=== PATIENT | female | born 1950 | race Caucasian/White ===

== ENCOUNTER 2018-10-15 11:30 | Emergency (ER) | payer OTHER, MEDICARE ==
[~2018-10-15] VITALS: Ht 167.6 cm; Wt 48.5 kg
[2018-10-15 12:34] LABS: ABSOLUTE NEUTROPHILS 4.6 thou/uL (1.4-8.2); BASOPHILS 0.7 % (0.0-2.0); EOSINOPHILS 0.8 % (0.0-3.0); HEMATOCRIT 26.9 % (37.0-47.0); HEMOGLOBIN 9.6 gm/dL (12.0-15.0); LYMPHOCYTES 8.8 % (24.0-44.0); MCH 36.5 pg (26.0-34.0); MCHC 35.7 g/dL (28.0-37.0); MCV 102.3 fL (80.0-100.0); MONOCYTES 11.9 % (1.0-8.0); PLATELET COUNT 324 thou/uL (150-400); POLYS 77.8 % (36.0-66.0); RBC 2.63 mil/uL (4.20-5.00); RDW 14.8 % (10.5-14.5); WBC 5.9 thou/uL (4.0-11.0)
[2018-10-15 12:44] LABS: CALCIUM 9.1 mg/dL (8.5-10.1); CREATININE 0.6 mg/dL (0.6-1.0); POTASSIUM 3.5 mmol/L (3.5-5.1)
[2018-10-15 12:48] LABS: APTT 27.6 Seconds (24.5-32.8); PROTIME 10.7 Seconds (9.3-11.4)
[2018-10-15 12:49] LABS: ALBUMIN 3.2 g/dL (3.4-5.0); TOTAL BILIRUBIN 0.4 mg/dL (<0.1-1.0)
[2018-10-15 15:37] VITALS: BP 116/71
== END 2018-10-15 15:37 | disposition home or self-care (01) ==
LOC: ER 11:30
PROVIDERS: Emergency Medicine
DX: N99.820 Postprocedural hemorrhage of a genitourinary system organ or structure following a genitourinary system procedure (principal); R33.9 Retention of urine, unspecified

== ENCOUNTER 2018-11-25 13:42 | Inpatient (IN) | payer OTHER, MEDICARE ==
[~2018-11-25] VITALS: Ht 167.6 cm; Wt 46.3 kg
[2018-11-25 13:43] VITALS: BP 118/69
[2018-11-25 14:34] LABS: ABSOLUTE NEUTROPHILS 5.7 thou/uL (1.4-8.2); BASOPHILS 0.6 % (0.0-2.0); EOSINOPHILS 0.2 % (0.0-3.0); HEMATOCRIT 38.4 % (37.0-47.0); HEMOGLOBIN 12.9 gm/dL (12.0-15.0); LYMPHOCYTES 10.1 % (24.0-44.0); MCH 34.2 pg (26.0-34.0); MCHC 33.7 g/dL (28.0-37.0); MCV 101.8 fL (80.0-100.0); MONOCYTES 8.1 % (1.0-8.0); PLATELET COUNT 199 thou/uL (150-400); RBC 3.77 mil/uL (4.20-5.00); RDW 13.3 % (10.5-14.5)
[2018-11-25 14:42] LABS: ANION GAP 8 mmol/L (7-16); BUN 17 mg/dL (7-18); CALCIUM 9.7 mg/dL (8.5-10.1); CHLORIDE 91 mmol/L (98-107); CO2 26 mmol/L (21-32); CREATININE 0.6 mg/dL (0.6-1.0); GLUCOSE 103 mg/dL (74-106); POTASSIUM 4.4 mmol/L (3.5-5.1); SODIUM 125 mmol/L (136-145)
[2018-11-25 14:52] LABS: TROPONIN-I <0.06 ng/mL (<0.06)
[2018-11-25 15:48] LABS: URINE BILIRUBIN NEGATIVE (Negative); URINE BLOOD NEGATIVE (Negative); URINE CLARITY CLEAR; URINE COLOR YELLOW; URINE GLUCOSE-RANDOM* NEGATIVE (Negative); URINE KETONES NEGATIVE (Negative); URINE LEUKOCYTES-REFLEX NEGATIVE (Negative); URINE NITRITE-REFLEX NEGATIVE (Negative); URINE PROTEIN (DIPSTICK) NEGATIVE (Negative); URINE SPECIFIC GRAVITY <= 1.005 (1.005-1.035); URINE UROBILINOGEN 0.2 E.U./dl (0.2-1.0)
[2018-11-25 15:49] LABS: URINE CREATININE-RANDOM* <13 mg/dL; URINE SODIUM-RANDOM* 24 mmol/L
[2018-11-25 16:32] VITALS: BP 105/72
[2018-11-25] MEDS ORDERED: VERAPAMIL E.R240 M1 PO (16:46)
[2018-11-25 17:17] VITALS: BP 157/74
--- NOTE | 2018-11-25 17:17 | EKG ---
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1950 Requested By: Lew Regan Order Number: [id number] MD: Atul Arzola Measurements Intervals [place] Rate: 54 P: 43 TX: 229 QRS: 23 QRSD: 107 T: 49 QT: 462 QTc: 438 Interpretive Statements Sinus rhythm Atrial premature complex Prolonged TX interval RSR' in V1 or V2, right VCD or RVH No previous ECG available for comparison Electronically Signed On 11-25-2018 17:17:38 CDT by Atul Arzola [email or web address] ��������������������������������������������� <ELECTRONICALLY SIGNED> ���������������������������������������� By: Atul Arzola MD ��������������������������������������������� 11/25/18 1717 1349 48 Atul Arzola MD /ANGELIQUE
[2018-11-25] MEDS ORDERED: LASIX 40 MG TAB40 M2 PO (17:39)
[2018-11-25] MEDS ORDERED: PENTOXIFYLLINE400 MG PO (17:41)
[2018-11-25] MEDS ORDERED: DOXYCYCLINE 10100 MG PO (17:41)
[2018-11-25] MEDS ORDERED: XANAX1 MG PO ×2 (17:43)
[2018-11-25] MEDS ORDERED: TYLENOL EXTRA500 MG PO (17:43)
[2018-11-25] MEDS ORDERED: ESTRODIAL TRANSDERM (17:45)
--- NOTE | 2018-11-25 17:55 | NUR ---
ADMISSION COMPLETED AND PATIENTS PHARMACY CALLED TO VERIFY MEDICATIONS AND DOSAGES. PHARMACY CONFIRMED THAT PATIENT HAS NO MEDICATION ALLERGIES LISTED WITH THEM. PATIENT VERBALIZED UNDERSTANDING TO ALL ADMISSION INFORMATION PROVIDED.
[2018-11-25 20:33] VITALS: BP 150/72
[2018-11-25] MEDS ORDERED: CALAN120 MG PO ×2 (22:55→22:57)
--- NOTE | 2018-11-26 02:54 | NUR ---
ASSUMED CARE AROUND 1900. ADMITTED WITH SYNCOPE. AXOX4 WITH FORGETFULNESS. WHEN ENTERED SHIFT. PT HAD WRITTEN EXACT HOME MED REGIMEN ON A NOTEPAD. CALLED TICKET PULLER FOR AND OBTAINED AN ORDER TO RESUME ANY HOME MEDS THAT PT IS REQUESTING INCLUDING XANAX,TYLENOL,MELATONIN AND SIMETHICONE. CARRIED OUT. VSS. NO SYNCOPAL EPISODE NOTED AT THIS TIME. NO S/S ACUTE DISTRESS NOTED OR REPORTED AT THIS TIME. WILL CONT TO MONITOR FOR ANY CHANGES IN CONDITION.
[2018-11-26] MEDS ORDERED: TYLENOL EXTRA500 MG PO ×2 (03:52→03:54)
[2018-11-26] MEDS ORDERED: MELATONIN3 MG PO (03:52)
[2018-11-26] MEDS ORDERED: SIMETHICON CHEW80 M1 PO (03:53)
[2018-11-26 04:03] VITALS: BP 126/63
[2018-11-26 08:16] VITALS: BP 123/62
[2018-11-26 12:21] LABS: CALCIUM 9.7 mg/dL (8.5-10.1); CREATININE 0.7 mg/dL (0.6-1.0)
[2018-11-26 14:34] VITALS: BP 123/60
--- NOTE | 2018-11-26 16:07 | NUR ---
PT ADMITTED RELATED TO SYNCOPE. CM REVIEWED CHART AND SPOKE WITH CARE TEAM. CM MET WITH PT AND SPOUSE AT BEDSIDE THIS DAY. PT IS A&O X4. CM ROLE INTRODUCED. PT INDICATED SHE AND SPOUSE RESIDE IN AN APARTMENT WITH NO STEPS TO ENTER AND NO STEPS INSIDE. 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 SHE INDICATED THAT HER SPOUSE HELPS HER WHEN HE'S AROUND. PT INDICATED SHE HAD GONE TO OP THERAPY IN THE PAST. SHE INDICATED SHE WOULD BE RECEPTIVE TO HOME HEALTH SERVICES IF RECOMMENDED UPON DC. THEY INDICATED NO PREFERENCE AND STATED THAT [facility] WOULD BE FINE IF SERVICES WERE ORDERED UPON DC. PT PLANS TO DC HOME THIS WEEKEND. CM TO FOLLOW INDICATED WITH DC PLANNING.
[2018-11-26 16:44] VITALS: BP 145/71
[2018-11-26 16:45] VITALS: BP 116/88; BP 140/76
[2018-11-26 19:36] VITALS: BP 123/71
[2018-11-27 03:03] VITALS: BP 141/70
--- NOTE | 2018-11-27 03:23 | NUR ---
PATIENT AOX4 MAKES NEEDS KNOWN. PATIENT AMBULATES WITH UNSTEADY GAITS. PATIENT AMBULATES IN THE ROOM AND HALLWAY. INCREASED HEART RATE NOTED WITH ACTIVITIES. PAIN CONTROLLED THIS SHIFT. PATIENT DENIED SYNOPE OR DISCOMFORT THIS SHIFT. PATIENT IN BED ASLEEP AT THIS TIME BREATHING REGULAR AND UNLABOURED
[2018-11-27 03:49] VITALS: BP 144/64
[2018-11-27 04:48] LABS: CALCIUM 9.2 mg/dL (8.5-10.1); CREATININE 0.7 mg/dL (0.6-1.0); POTASSIUM 4.2 mmol/L (3.5-5.1)
[2018-11-27 07:41] VITALS: BP 125/71
[2018-11-27 10:36] VITALS: BP 125/71
--- NOTE | 2018-11-27 15:06 | NUR ---
PT ALERT AND ORIENTED TIMES FOUR. VSS, 99%RA, SR ON TELE. PT DENIES PAIN/SOA. PT TOLERATES MEDS AND MEALS. PT UP TO RESTROOM WITH STANDBY ASSIST. PT PROGRESSSING [facility] POC GOALS.
--- NOTE | 2018-11-30 09:44 | H ---
[facility] [place] [address] HISTORY AND PHYSICAL Name: DB DANIELLE Room #: 464-P [facility] IN .R.#: [id number] Admission: 11/25/18 ������������������ Attend Phys: Mason Mishra MD Discharge: 11/27/18 ������������������ Date of : 48 Report #: [id number] THIS REPORT FOR: //name// CC: Madi Mishra DATE OF SERVICE: 11/25/2018 CHIEF COMPLAINT: Syncope. HISTORY OF PRESENT ILLNESS: The patient is a 68-year-old female who was admitted through the Emergency Room with a syncopal episode. She apparently passed out while standing in her kitchen. Her said she did not hit her head and seemed to regain consciousness after just a few seconds. There were no preceding symptoms of chest pain, lightheadedness or shortness of breath. However, the patient told me that a few times over the last several weeks, she has felt "woozy" in her head at times and has had to sit down or lie down for the symptoms to pass. She denied any previous syncopal episodes. PAST MEDICAL HISTORY: Anxiety. She has a chronic eye condition. She recently underwent a corrective repair of a rectovagicele at [facility]. She had some minor bleeding postoperatively, varicose veins with edema. PAST SURGICAL HISTORY: As above. FAMILY HISTORY: Noncontributory. SOCIAL HISTORY: She lives at home. No chronic alcohol or tobacco use. ALLERGIES: She has multiple. MEDICATIONS: Several eyedrops, Xanax multiple times a day, verapamil twice a day. REVIEW OF SYSTEMS: She complains of dry eyes and trouble sleeping. Otherwise, no headache, chest pain, shortness of breath, abdominal pain, nausea, vomiting, diarrhea, constipation, dysuria, myalgias, arthralgias. She does report some ankle edema. OBJECTIVE: VITAL SIGNS: Temperature 36.6, pulse 57, respirations 18, blood pressure 123/62, O2 sat 100% on room air. GENERAL: She is awake and alert, in no distress. HEAD AND NECK: Unremarkable. LUNGS: Clear. CARDIOVASCULAR: Heart is regular. [facility] [address] [place] [address] HISTORY AND PHYSICAL Name: DB DANIELLE Room #: 464-P [facility] IN M.R.#: [id number] Admission: 11/25/18 ������������������ Attend Phys: Mason Mishra MD Discharge: 11/27/18 ������������������ Date of : 48 Report #: [id number] ABDOMEN: Soft, normoactive bowel sounds. EXTREMITIES: There is trace ankle edema. NEUROLOGIC: Cranial nerves intact. Speech is fluent. Motor strength 5/5 throughout. She is oriented to place and situation. LABORATORY REVIEW: Pertinent findings include sodium of 125. ASSESSMENT: 1. Syncopal episode. 2. Hyponatremia. 3. Chronic anxiety. PLAN: We will hold her Lasix for now as her edema has resolved. I wonder if she could have had a vasovagal or orthostatic event at home. She said her neurologist has recently increased her verapamil to 180 mg at bedtime. In reviewing lab data from the office, most recently her sodium was 130 and in August of this year was 129, so this seems to be a mildly chronic issue. She is asymptomatic from that regard at this point. She reports cardiac evaluation prior to her surgery, so I do not feel we need to repeat an echocardiogram at this time, but we will order carotid Dopplers, but suspicion is low there. ��������������������������������������������� <ELECTRONICALLY SIGNED> ���������������������������������������� By: Mason Mishra MD ��������������������������������������������� 11/30/18 0944 1153 1242 Mason Mishra MD /nt
== END 2018-11-27 13:40 | disposition home or self-care (01) | DRG 640 ==
LOC: ER 13:42 → 4W 15:10 → EROBS 15:10 → 4W 16:17
PROVIDERS: Emergency Medicine; ADMIT Internal Medicine Geriatric Medicine
DX: E87.1 Hypo-osmolality and hyponatremia (principal); E43 Unspecified severe protein-calorie malnutrition; Z68.1 Body mass index [BMI] 19.9 or less, adult; F41.9 Anxiety disorder, unspecified; Z79.899 Other long term (current) drug therapy
CPT/HCPCS: 10045

== ENCOUNTER → 2018-12-29 | Outpatient (CLI) | payer OTHER, MEDICARE ==
[~2018-12-29] VITALS: Ht 167.6 cm; Wt 49.4 kg
[~2018-12-29] MED LIST: CALAN120 MG PO; DIFLUCAN200 MG PO; DOXYCYCLINE 10100 MG PO; ESTRODIAL TRANSDERM; LASIX 40 MG TAB40 M2 PO; MELATONIN3 MG PO; PENTOXIFYLLINE400 MG PO; SIMETHICON CHEW80 M1 PO; TYLENOL EXTRA500 MG PO; VERAPAMIL E.R240 M1 PO; VERAPAMIL PO; XANAX1 MG PO
--- NOTE | 2018-12-30 15:29 | P ---
[facility] [place] [address] PROCEDURE REPORT Name: DB DAINELLE Room #: REG Briseida Baker.#: [id number] Admission: 12/29/18 ������������������ Attend Phys: Johnny Morley Discharge: ������������������ Date of : 48 Report #: [id number] THIS REPORT FOR: //name// CC: Aime Conway DATE OF SERVICE: 12/29/2018 PROCEDURE PERFORMED: Flexible sigmoidoscopy with biopsies. HISTORY OF PRESENT ILLNESS: The patient is a 68-year-old female with a history of intermittent diarrhea and constipation. She underwent a colonoscopy by my partner in 2010. At that time, biopsies were consistent with collagenous colitis. Per the office chart note at that time, she was having chronic diarrhea as well as weight loss. She does not recall being treated in the past. She has had a long history of constipation and she has frequent bowel movements. She averages 8 to 15 per day she states, which is becoming worse after a recent prolapse surgery of the pelvic floor this apparently for vaginal and bladder prolapse. She does not have a history of rectal prolapse apparently. She denies any obvious blood in her stools. She has tried MiraLax. She states on a typical day, she will pass multiple small hard stools and then later followed by loose stools and diarrhea. Plan is for flexible sigmoidoscopy. DESCRIPTION OF PROCEDURE: The risks and benefits of the procedure were explained to the patient those risks including, but not limited to bleeding, perforation and the risk of sedation. She understood these risks and gave informed consent. Sedation was given using propofol per anesthesia. Next on a digital rectal exam, there was noted to be several balls of formed stool in the rectum. I removed these digitally removing approximately 6 to 8 fecal balls. At this point, a standard Olympus colonoscope was placed in the patient's anus and advanced under direct vision into the sigmoid colon at which point there was a combination of liquid as well as solid stool. Multiple washings and aspirations were performed. All areas that were visualized were normal in the sigmoid colon as well as the rectum. There was no evidence of colitis. There were no polyps or other abnormalities noted. I did obtain random biopsies to rule out microscopic colitis. I was unable to advance the scope much further than the sigmoid colon again due to large amount of stool in this area. On retroflexion, small internal hemorrhoid was noted. Close examination of the anal canal showed no evidence of anal fissure. No bleeding was noted. The scope was then withdrawn and the procedure terminated. The patient tolerated the procedure well. IMPRESSION: Solid stool throughout the rectum digitally removed, prep was poor in many areas, but areas of the sigmoid colon and rectum that were visualized [address] [address] PROCEDURE REPORT Name: DB DANIELLE Room #: REG PIPPA Chavez#: [id number] Admission: 12/29/18 ������������������ Attend Phys: Johnny Morley Discharge: ������������������ Date of : 48 Report #: [id number] were normal. No evidence of colitis or abnormality. Biopsies were obtained. RECOMMENDATIONS: 1. Await biopsy results. 2. It appears constipation tends to be more of an issue with the patient and diarrhea, although she does report loose stools and diarrhea after passing multiple hard stools. We will discuss further options, MiraLax, maybe even consider Linzess with the patient in the near future. Thank you for allowing me to participate in her care. ��������������������������������������������� <ELECTRONICALLY SIGNED> ���������������������������������������� By: Johnny Mccoy MD ��������������������������������������������� 12/30/18 1529 1159 0414 Johnny Mccoy MD /nt
--- NOTE | 2018-12-30 17:06 | PATH ---
[facility] [place] [address] PATHOLOGY RPT PROCEDURE Name: DB RIVERA Room #: REG PIPPA Baker.#: [id number] ������������������ Admission: 12/29/18 ������������������ Date of : 48 Discharge: Report #: [id number] Path Case #: [id number] [facility] Accession Number: [id number] . 01 Material submitted: . colon - BX OF RANDOM COLON . 01 Clinical history: . Pre-OP DX: Hx of microscopic colitis, intermittent diarrhea, please refer to requisition for additional information Post-OP DX: None provided . 02 Diagnosis: Large intestinal mucosa, random colon, endoscopic biopsy: - Thickened subepithelial collagen, favor collagenous colitis (please see comment). . (IUV:mml; 12/30/2018) QLM/12/30/2018 . 02 Comment: Examination shows thickened subepithelial collagen layer in numerous foci. The crypts appear atrophic within these areas. Focal denuded epithelium is identified as well. Active cryptitis, ulceration, fibrinopurulent material, fibrin-filled vessels, crypt abscess, architectural abnormalities, as well as viral inclusions are not identified. The findings are suggestive of collagenous colitis. The differential diagnosis includes a partially-sampled ischemic colitis, (without active ulceration). There is no dysplasia or malignancy present. Clinical correlation is suggested. . (IUV:mml; 12/30/2018) . 02 Electronically signed: . Susan Razo MD, Pathologist NPI- [id number] . 01 Gross description: . Received in formalin labeled "Db Rivera, BX of random colon," are 3 segments of nguyen soft tissue measuring 1.0 x 0.8 x 0.3 cm in aggregate dimensions and ranging from 0.3 to 0.4 cm in maximum dimension. The specimen is submitted entirely in cassette A1. (TSD; 12/29/2018) TOB/TOB . 02 Pathologist provided ICD-10: K52.[address] [place] [address] PATHOLOGY RPT PROCEDURE Name: DB RIVERA Room #: REG [facility] [id number] ������������������ Admission: 12/29/18 ������������������ Date of : 48 Discharge: Report #: [id number] Path Case #: [id number] . 02 [facility] . [id number] Specimen Comment: A courtesy copy of this report has been sent to Specimen Comment: [phone], . Specimen Comment: Report sent to / DR HORNER Performed at: [address] [facility], [place], [place] [id number] MD Gregorio Aguila MD Phone: [phone] Performed at: [address] [facility] [id number] MD Susan Razo MD Phone: [phone]
== END | disposition home or self-care (01) ==
LOC: GI 08:46
DX: K52.831 Collagenous colitis (principal); K64.8 Other hemorrhoids; I10 Essential (primary) hypertension; E78.5 Hyperlipidemia, unspecified; M19.90 Unspecified osteoarthritis, unspecified site; F32.9 Major depressive disorder, single episode, unspecified; F41.9 Anxiety disorder, unspecified; Z85.828 Personal history of other malignant neoplasm of skin; Z90.710 Acquired absence of both cervix and uterus; Z98.890 Other specified postprocedural states; Z98.41 Cataract extraction status, right eye; Z98.42 Cataract extraction status, left eye; Z87.19 Personal history of other diseases of the digestive system; Z88.6 Allergy status to analgesic agent; Z88.8 Allergy status to other drugs, medicaments and biological substances; Z79.899 Other long term (current) drug therapy
CPT/HCPCS: 62110; 62900

== ENCOUNTER → 2019-03-07 | Outpatient (CLI) | payer OTHER, MEDICARE | LOC: RAD 11:59 | DX: K59.00 Constipation, unspecified (principal) ==

== ENCOUNTER 2019-10-06 21:21 | Inpatient (IN) | payer OTHER, MEDICARE ==
[~2019-10-06] VITALS: Ht 167.6 cm; Wt 48.1 kg
--- NOTE | ~2019-10-06 | H ---
[facility] [place] [address] HISTORY AND PHYSICAL Name: DB DANIELLE Room #: 464-P ADM IN M.R.#: [id number] Admission: 10/07/19 Attend Phys: Noah Michele Discharge: Date of : 48 Report #: [id number] THIS REPORT FOR: cc: Madi Conway MD,Lauren Arriaga MD ~ CC: Madi Conway DATE OF SERVICE: 10/07/2019 CHIEF COMPLAINT: Weakness and confusion. HISTORY OF PRESENT ILLNESS: The patient is a 68-year-old female who was admitted to the Emergency Room with confusion. She said for the last several months she has not been feeling well and she is kind of "sick all over." She says she has had a hard time concentrating and remembering things. She has reported a hard time managing her ADL function at home. There has really been no specific complaint of fever, chills, productive cough, nausea or vomiting. She has complaints of some urinary and fecal incontinence for the last 4 months that interrupts her sleep apparently. She has already been seen by colorectal surgery in Urology as an outpatient, but they are seeking second opinions. Apparently yesterday, she was completely incoherent, was directed to the Emergency Room. This morning, she is awake and alert and is giving appropriate history. There have been no major issues or changes overnight, so further workup has been unremarkable. PAST MEDICAL HISTORY: Bladder sling, rectal surgery, hysterectomy, osteoarthritis, depression, anxiety. She has a history of OCD, aundrea and anxiety and was admitted to [facility] some time ago and history of skin cancer. FAMILY HISTORY: Unknown. SOCIAL HISTORY: Unknown other than a chronic alcohol or tobacco use. ALLERGIES: There approximately 20 medications on her allergy list. See the computer list. MEDICATIONS: Xanax, pentoxifylline, estradiol patch, Tylenol, melatonin and Verapamil. REVIEW OF SYSTEMS: She just complains of feeling sick. She really cannot specify any specific symptoms. Denies headache, chest pain, abdominal pain, dysuria or syncope. PHYSICAL EXAMINATION: [facility] [address] [place] [address] HISTORY AND PHYSICAL Name: DB DANIELLE Room #: 464-P [facility] IN .R.#: [id number] Admission: 10/07/19 Attend Phys: Noah Michele Discharge: Date of : 48 Report #: [id number] VITAL SIGNS: Temperature 36.3, pulse 106, respirations 18, blood pressure 184/51, O2 sat 97% on room air. GENERAL: She is awake and alert, eating breakfast, in no distress. HEAD AND NECK: Unremarkable. LUNGS: Clear. HEART: Regular. ABDOMEN: Soft. Normoactive bowel sounds, soft, nontender, no rebound or guarding. EXTREMITIES: No cyanosis, clubbing or edema. LABORATORY DATA: Reviewed. Pertinent findings are sodium 125. ASSESSMENT: 1. Hyponatremia. 2. Hypertension. 3. Chronic anxiety, depression. PLAN: She received a little bit of IV fluids overnight and I will repeat her lab work. No sign of infectious process or acute neurovascular event at this point. I will ask the psychiatry service to see her as well. By: 0950 1015 Lauren Flores, FLOWER /nt
--- NOTE | ~2019-10-06 | EMS ---
[facility] [address] [place] [address] EMS Patient Care Report Name: DB DANIELLE Room #: 462-P ADM IN M.R.#: [id number] Admission: 10/07/19 Attend Phys: Noah Michele Discharge: Date of : 48 Report #: [id number] THIS REPORT FOR: //name// Report Transmitted: 10/10/2019 09:25 EMS Care Summary [facility] MED-ACT Incident [id number] @ 10/06/2019 20:40 Incident Location [id number] [place] [address] Patient DB DANIELLE Female, 68 Years 1950 Patient Address [address] [place] [address] Patient History Other,Gastro-Esophageal Reflux Disease (GERD),Anxiety,Urinary Incontinence,Insomnia, Patient Medications Pantoprazole, Metronidazole, Mylanta, Calcium Citrate, Miralax, Melatonin, Fluconazole, Doxycycline, Estradiol, Famotidine, Dyazide, Verapamil, Cymbalta, Aciphex, Alprazolam, Effexor, Tylenol, Klonopin, Trazodone, Chief Complaint confusion Disposition Transported No Lights/[place] Dispatch Reason Unconscious/Fainting Transported To [facility] Narrative Pt stated she has not been taking her medication as prescribed and is now [facility] [address] [place] [address] EMS Patient Care Report Name: DB DANIELLE Room #: 462-P ADM IN ..#: [id number] Admission: 10/07/19 Attend Phys: Noah Michele Discharge: Date of : 48 Report #: [id number] hurting all over and can't sleep, hx of insomnia. Pt said she does not have any help with organizing medication from her spouse. Spouse said he was unaware pt stopped taking her medication but also stated she is refusing to take her sleep and pain medication due to a hx of addiction. Spouse said pt is not sleeping and has a hx of anxiety. Pt denied any self harm and stated she is aware she is confused. Pt also complained of her chronic eye pain. Spouse said pt was recently in [facility] for psych and the doctor changed all her medication. EMS arrived to pt and spouse sitting at their kitchen table. Spouse was attempting to explain the pt's medical hx and saying she is non compliant with doctor orders. Pt kept repeating herself, "There's something I need to take tonight". Pt also was repeatedly talking about her living will and DNR. Pt stood and sat on cot, secured. Pt to MICU. En route pt repeated the same phrase as above and said she was hurting all over. EMS asked the pt if she was aware of the current event and understood what was happening. Pt was able to state she was confused and going to [place]. Biocom- no orders req/rec Pt to bed, verbal report to RN Initial Vitals @21:09BP: 199/102,SpO2: 100, @21:02P: 92,BP: 180/91,Glucose: 107,SpO2: 100, @20:53P: 85,R: 20,BP: 185/100,Pain: 6/10,GCS: 15,SpO2: 100,Revised Trauma: 12, Assessments @20:48MENTAL:Confused,Person Oriented,Place Oriented,Time Oriented,Event Oriented,SKIN:HEENT:Head/Face: Other,Eyes: Right Pupil: 3-mm,Eyes: Left Pupil: 3-mm,Neck/Airway: No Abnormalities,LUNG SOUNDS:General: No Abnormalities,ABDOMEN:General: No Abnormalities,PELVIS//GI:No Abnormalities,EXTREMITIES:Left Arm: No Abnormalities,Right Arm: No Abnormalities,Left Leg: No Abnormalities,Right Leg: No Abnormalities,PULSE:NEURO:No Abnormalities, Impression Malaise Timeline 20:40,Call Received 20:40,Psap Call 20:40,Dispatched 20:41,En Route 20:46,On Scene 20:47,At Patient [address] [place] [address] EMS Patient Care Report Name: DB DANIELLE Room #: 462-P ADM IN M.R.#: [id number] Admission: 10/07/19 Attend Phys: Noah Michele Discharge: Date of : 48 Report #: [id number] 20:53,BP: 185/100 M,PULSE: 85,RR: 20 R,SPO2: 100 Ox,ETCO2: ,BG: ,PAIN: 6,GCS: 15, 21:02,Depart Scene 21:02,BP: 180/91 M,PULSE: 92,RR: R,SPO2: 100 Ox,ETCO2: ,B,PAIN: ,GCS: , 21:09,BP: 199/102 M,PULSE: ,RR: R,SPO2: 100 Ox,ETCO2: ,BG: ,PAIN: ,GCS: , 21:16,At Destination 21:28,Call Closed Disclaimer v1.1 Copyright 2020 [employer] This EMS Care Summary contains data elements from the applicable legal record (which may be displayed differently). It is designed to provide pertinent information for the following purposes: continuity of care, clinical quality, and state data reporting. The complete legal record is available to ED staff and administrators of the receiving hospital in [employer]'s Patient Tracker. All data is provided "as is."
--- NOTE | ~2019-10-06 | EMS ---
[facility] [address] [place] [address] EMS Patient Care Report Name: DB DANIELLE Room #: REG YASH Chavez#: [id number] Admission: 10/06/19 Attend Phys: Discharge: Date of : 48 Report #: [id number] THIS REPORT FOR: //name// Report Transmitted: 10/06/2019 22:10 EMS Care Summary [facility] MED-ACT Incident [id number] @ 10/06/2019 20:40 Incident Location [address] [place] [address] Patient DB DANIELLE Female, 68 Years 1950 Patient Address [id number] [place] [address] Patient History Other,Gastro-Esophageal Reflux Disease (GERD),Anxiety,Urinary Incontinence,Insomnia, Patient Medications Pantoprazole, Metronidazole, Mylanta, Calcium Citrate, Miralax, Melatonin, Fluconazole, Doxycycline, Estradiol, Famotidine, Dyazide, Verapamil, Cymbalta, Aciphex, Alprazolam, Effexor, Tylenol, Klonopin, Trazodone, Chief Complaint confusion Disposition Transported No Lights/[place] Reason Unconscious/Fainting Transported To [facility] Narrative Pt stated she has not been taking her medication as prescribed and is now [facility] [address] [place] [address] EMS Patient Care Report Name: DB DANIELLE Room #: REG YASH Chavez#: [id number] Admission: 10/06/19 Attend Phys: Discharge: Date of : 48 Report #: [id number] hurting all over and can't sleep, hx of insomnia. Pt said she does not have any help with organizing medication from her spouse. Spouse said he was unaware pt stopped taking her medication but also stated she is refusing to take her sleep and pain medication due to a hx of addiction. Spouse said pt is not sleeping and has a hx of anxiety. Pt denied any self harm and stated she is aware she is confused. Pt also complained of her chronic eye pain. Spouse said pt was recently in [facility] for psych and the doctor changed all her medication. EMS arrived to pt and spouse sitting at their kitchen table. Spouse was attempting to explain the pt's medical hx and saying she is non compliant with doctor orders. Pt kept repeating herself, "There's something I need to take tonight". Pt also was repeatedly talking about her living will and DNR. Pt stood and sat on cot, secured. Pt to MICU. En route pt repeated the same phrase as above and said she was hurting all over. EMS asked the pt if she was aware of the current event and understood what was happening. Pt was able to state she was confused and going to [place]. Biocom- no orders req/rec Pt to bed, verbal report to RN Initial Vitals @21:09BP: 199/102,SpO2: 100, @21:02P: 92,BP: 180/91,Glucose: 107,SpO2: 100, @20:53P: 85,R: 20,BP: 185/100,Pain: 6/10,GCS: 15,SpO2: 100,Revised Trauma: 12, Assessments @20:48MENTAL:Confused,Person Oriented,Place Oriented,Time Oriented,Event Oriented,SKIN:HEENT:Head/Face: Other,Eyes: Right Pupil: 3-mm,Eyes: Left Pupil: 3-mm,Neck/Airway: No Abnormalities,LUNG SOUNDS:General: No Abnormalities,ABDOMEN:General: No Abnormalities,PELVIS//GI:No Abnormalities,EXTREMITIES:Left Arm: No Abnormalities,Right Arm: No Abnormalities,Left Leg: No Abnormalities,Right Leg: No Abnormalities,PULSE:NEURO:No Abnormalities, Impression Malaise Timeline 20:40,Call Received 20:40,Psap Call 20:40,Dispatched 20:41,En Route 20:46,On Scene 20:47,At Patient [facility] [address] [place] [address] EMS Patient Care Report Name: DB DANIELLE Room #: REG ER [facility].#: [id number] Admission: 10/06/19 Attend Phys: Discharge: Date of : 48 Report #: [id number] 20:53,BP: 185/100 M,PULSE: 85,RR: 20 R,SPO2: 100 Ox,ETCO2: ,BG: ,PAIN: 6,GCS: 15, 21:02,Depart Scene 21:02,BP: 180/91 M,PULSE: 92,RR: R,SPO2: 100 Ox,ETCO2: ,B,PAIN: ,GCS: , 21:09,BP: 199/102 M,PULSE: ,RR: R,SPO2: 100 Ox,ETCO2: ,BG: ,PAIN: ,GCS: , 21:16,At Destination 21:28,Call Closed Disclaimer v1.1 Copyright 2020 [employer] This EMS Care Summary contains data elements from the applicable legal record (which may be displayed differently). It is designed to provide pertinent information for the following purposes: continuity of care, clinical quality, and state data reporting. The complete legal record is available to ED staff and administrators of the receiving hospital in [employer]'s Patient Tracker. All data is provided "as is."
[2019-10-06 21:32] VITALS: BP 182/102
[2019-10-06 22:00] LABS: ABSOLUTE NEUTROPHILS 3.4 thou/uL (1.4-8.2); BASOPHILS 0.7 % (0.0-2.0); EOSINOPHILS 0.4 % (0.0-3.0); HEMATOCRIT 41.6 % (37.0-47.0); LYMPHOCYTES 23.7 % (24.0-44.0); MCH 34.5 pg (26.0-34.0); MCHC 33.7 g/dL (28.0-37.0); MCV 102.4 fL (80.0-100.0); MONOCYTES 11.7 % (1.0-8.0); PLATELET COUNT 214 thou/uL (150-400); POLYS 63.5 % (36.0-66.0); RBC 4.06 mil/uL (4.20-5.00); RDW 12.1 % (10.5-14.5); WBC 5.3 thou/uL (4.0-11.0)
[2019-10-06 22:15] LABS: ANION GAP 12 mmol/L (7-16); BUN 13 mg/dL (7-18); CALCIUM 10.3 mg/dL (8.5-10.1); CHLORIDE 87 mmol/L (98-107); CO2 26 mmol/L (21-32); CREATININE 0.7 mg/dL (0.6-1.0); GLUCOSE 98 mg/dL (74-106); POTASSIUM 3.2 mmol/L (3.5-5.1); SODIUM 125 mmol/L (136-145)
[2019-10-06 22:18] LABS: ALBUMIN 4.6 g/dL (3.4-5.0); SALICYLATE < 2.8 mg/dL (2.8-20.0); SGOT 30 U/L (15-37); SGPT 33 U/L (30-65); TOTAL BILIRUBIN 0.5 mg/dL (<0.1-1.0); TOTAL PROTEIN 7.5 g/dL (6.4-8.2); TROPONIN-I <0.06 ng/mL (<0.06)
[2019-10-07] VITALS (8 sets, daily range): BP systolic 132–184; BP diastolic 51–101
[2019-10-07 00:35] LABS: URINE BILIRUBIN NEGATIVE (Negative); URINE BLOOD NEGATIVE (Negative); URINE CLARITY CLEAR; URINE COLOR YELLOW; URINE GLUCOSE-RANDOM* NEGATIVE (Negative); URINE KETONES NEGATIVE (Negative); URINE LEUKOCYTES-REFLEX NEGATIVE (Negative); URINE NITRITE-REFLEX NEGATIVE (Negative); URINE PROTEIN (DIPSTICK) NEGATIVE (Negative); URINE UROBILINOGEN 0.2 E.U./dl (0.2-1.0)
[2019-10-07 00:49] LABS: AMP/METHAMP Negative (Negative); BARBITURATES Negative (Negative); BENZODIAZEPINES POSITIVE (Negative); COCAINE Negative (Negative); METHADONE Negative (Negative); OPIATES Negative (Negative); PCP Negative (Negative)
--- NOTE | 2019-10-07 02:40 | NUR ---
Pt. arrived to the unit from the emergency room accompanied by staff via cart. She is alert and oriented. Concerned about her home meds and reassured her that the DrSamuel would be in today and go over them with her. Admission assessment and history is completed. Bed alarm is on.
--- NOTE | 2019-10-07 08:06 | EKG ---
[facility] [place] [place] [address] ELECTROCARDIOGRAM REPORT Name: DB DANIELLE Room #: 464-P ADM IN M.R.#: [id number] Admission: 10/07/19 Attend Phys: Naoh Michele Discharge: Date of : 48 Report #: [id number] THIS REPORT FOR: cc: Madi Conway MD, Christopher B. MD Lundgren,Mich Ann MD [facility] ~ THIS REPORT FOR: //name// [facility] ED Test Date: 2019-10-06 Test Time: 23:05:49 Pat Name: DB DANIELLE Department: Room: 464 Gender: F Angular Developer: VITA : 1950 Requested By: Nina Kaur Order Number: [id number] MD: Mich Rebolledo Measurements Intervals [place] Rate: 75 P: 97 MI: 209 QRS: 22 QRSD: 114 T: 90 QT: 427 QTc: 477 Interpretive Statements Sinus rhythm ventricular premature complexes Borderline intraventricular conduction delay Right ventricular conduction delay Compared to ECG 11/25/2018 13:49:09 Ventricular premature complex(es) now present Atrial premature complex(es) no longer present Electronically Signed On 10-07-2019 8:05:05 WIND UP WORKER by Mich Rebolledo [email or web address] <ELECTRONICALLY SIGNED> By: Mich Rebolledo MD, [facility] 10/07/1905 04 04 Mich Rebolledo MD, [facility] /EPI
[2019-10-07] MEDS ORDERED: VERAPAMIL ER120 MG PO (10:32)
[2019-10-07] MEDS ORDERED: VERAPAMIL HCL120 MG PO (11:08)
[2019-10-07 11:26] LABS: CALCIUM 8.6 mg/dL (8.5-10.1); CREATININE 0.6 mg/dL (0.6-1.0); POTASSIUM 3.2 mmol/L (3.5-5.1)
[2019-10-07] MEDS ORDERED: MINIVELLE1 EAC1 TRANSDERM (12:00)
[2019-10-07] MEDS ORDERED: DOXYCYCLINE 10100 MG PO (12:03)
[2019-10-07] MEDS ORDERED: RABEPRAZOLE SOD20 MG PO (12:04)
[2019-10-07] MEDS ORDERED: FLONASE 0.05%50 MCG NARES (12:04)
[2019-10-07] MEDS ORDERED: TRIAMTERENE/HCT1 CA1 PO (12:04)
--- NOTE | 2019-10-07 13:11 | NUR ---
I was asked to assess Miguel A to see if she would meet criteria for [facility] admission. Miguel A appears to be anxious. She adamits to having anxiety. She is worried about many things but sould not identiry any one specific thing she is worried about. She stated "I can't function at home" and I can't get my mind to remember things." Patient admits to having a decreased appetite. The RN reported that miguel a ate 25% - 30% of her brfst. Miguel A reports having insomnia. Miguel A does meet criteria for SB. She is mildly reluctant of being admitted to [facility]. "Will I be able to take my verapimil?" she asked. I informed her that she would be able to continue her medications. I consulted DR. Scott. If the patient is willing to be admitted to [facility], Dr. Scott will admit the patient.
--- NOTE | 2019-10-07 14:34 | NUR ---
I spoke with Miguel A's he is agreeable for miguel a to be admitted to [facility] if Dr. Jordi Ashraf is agreeable. Miguel A's nurse completed a ANISH and faxed it to Dr. Ashraf' office. I called Dr. Ashraf' office with Miguel A present and left a voice message for him to coordinate care per her 's request. I was speaking with Miguel A's with her nurse on the phone. Dr. Scott was informed of the husbands request. Once Miguel A is discharged from medical unit she will be admitted to [facility].
--- NOTE | 2019-10-07 16:18 | NUR ---
PT ADMITTED RELATED TO LOW SODIUM, DELIRIUM. CM REVIEWED CHART AND SPOKE WITH CARE TEAM. CM MET WITH PT AT BEDSIDE THIS DAY PT IS A&O X4. CM ROLE INTRODCUED. PT INDICATED SHE LIVES IN AN APARTMENT WITH HER SPOUSE WITH NO STEPS TO ENTER AND NO STEPS INSIDE. PT INDICATED SHE HAD BEEN HAVING TROUBLE CARING FOR HERSELF FRANCHISE CONSULTANT. SHE STATED THAT SHE CAN'T USE HER HANDS AND CAN'T REMEMBER WHERE ANYTHING IS IN HER HOUSE. PT INDICATED HE SPOUSE HAD BEEN ABLE TO ASSIST HER WITH SOME ADLS FRANCHISE CONSULTANT. PT INIDCATED SHE HAD DONE OP PT IN THE PAST BUT COULDN'T NOW SHE CAN'T DRIVE OR GET AROUND EASILY. CM SPOKE WITH PT REGARDING POSSIBLE POST ACUTE CARE STAY AND GETTING [employer] INVOLVED FOR SECONDARY MEDICAID [id number] IN THE EVENT PT NEEDED LTC PT STATED SHE DIDN'T WANT TO DO THAT. CM TO FOLLOW INDICATED WITH DC PLANNING. RAT TEAM CALLED ON PT DURING THIS NOTE. CM TO FOLLOW.
--- NOTE | 2019-10-07 17:03 | NUR ---
DESULPHURING OPERATOR called due to seizure activity-See flowsheet
--- NOTE | 2019-10-07 20:06 | NUR ---
Assumed pt care this am, pt med req done by pharmacy d/t discrepncies. Called Dr. Conway with regards to the ordering of home meds and other requests of the family. Elevated bp even in the pm post home meds, was advised to just monitor. Pt had sister at the bedside, RT and other nurse oin the room when pt had a "seizure", seen by MD, orders and diagnostics given. demanded that "one on one care be done " since pt is "so weak, had arthritis and cannot take care of herself." Moved pt to 462 closer to the unit, explained to the family pt is be assisted in feeding and referred to Dr. Conway. close monitoring done, POC followed pt is stable. endorsed to the night nurse.
[2019-10-08 05:06] LABS: CALCIUM 8.8 mg/dL (8.5-10.1); CREATININE 0.5 mg/dL (0.6-1.0)
[2019-10-08 05:13] LABS: POTASSIUM 2.7 mmol/L (3.5-5.1)
--- NOTE | 2019-10-08 05:57 | NUR ---
Pt. rested quietly at intervals during the night when checked on during frequent rounds. No noted seizure like activity observed during the shift. Pt. can get easily anxious at times and po scheduled xanax given with some relief. She has multiple requests for help as she feels like she just can not do anything for herself. External romero catheter in place. Pt. refused to be turned or repositioned during the shift. Bed alarm is on.
[2019-10-08 08:00] VITALS: BP 128/86
--- NOTE | 2019-10-08 10:17 | EKG ---
[facility] [place] [address] ELECTROCARDIOGRAM REPORT Name: DB DANIELLE Room #: 462-P ADM IN M.R.#: [id number] Admission: 10/07/19 Attend Phys: Noah Michele Discharge: Date of : 48 Report #: [id number] THIS REPORT FOR: cc: Madi Conway MD,Madi Rebolledo,Mich Ann MD [facility] ~ THIS REPORT FOR: //name// [facility] Test Date: 2019-10-07 Test Time: 16:30:10 Pat Name: DB DANIELLE Department: Room: 462 Gender: F Track Mechanic: Mikayla CONNELL : 1950 Requested By: Madi Conway Order Number: [id number] MD: Mich Rebolledo Measurements Intervals [place] Rate: 96 P: 80 ID: 235 QRS: 39 QRSD: 110 T: 75 QT: 379 QTc: 479 Interpretive Statements Sinus rhythm Prolonged ID interval Probable left atrial enlargement RSR' in V1 or V2, right VCD Borderline ST depression, lateral leads Compared to ECG 10/06/2019 23:05:49 Ventricular premature complex(es) no longer present Electronically Signed On 10-08-2019 10:16:34 CONTINUOUS IMPROVEMENT CONSULTANT by Mich Rebolledo [email or web address] <ELECTRONICALLY SIGNED> By: Mich Rebolledo MD, [facility] 10/08/19 1016 1630 1630 Mich Rebolledo MD, [facility] /EPI
--- NOTE | 2019-10-08 12:01 | NUR ---
Received awake on bed. Due medications given as prescribed, able to take her meds by cutting it in small pieces and taking it with pudding. With O2 at 2lpm via nasal cannula. Vital signs stable. Assisted in ADLs. On regular diet- no nausea, no vomiting and no abdominal pain noted; meal set up done, informed patient that as per Dr Mishra, staff are available to assist her but as much as possible physician wants her to be independent with ADLs or with minimal assist. Pt refusing to be turned and repositioned. With external romero in place. With SL at L AC- intact. Falls bundle in place. Pt visited by her and son, update given; eye drops from home brought in, Dr Mishra aware- sent to pharmacy for verifications, informed pt that we will be giving it to her once verified from pharmacy. Pt complaining of generalized pain- Dr Mishra aware, scheduled Tylenol prescribed and given.
[2019-10-08 17:04] VITALS: BP 119/71
[2019-10-08 20:40] VITALS: BP 121/72
[2019-10-09 06:19] LABS: CALCIUM 9.5 mg/dL (8.5-10.1); CREATININE 0.8 mg/dL (0.6-1.0); POTASSIUM 4.2 mmol/L (3.5-5.1)
--- NOTE | 2019-10-09 06:48 | NUR ---
RECIEVED CARE OF THIS PATIENT AT 1900. PATIENT ALERT AND ORIENTED X4. REMAINS IN SEIZURE PRECAUTIONS, NONE NOTED THIS SHIFT. BED IS PADDED. HAS EXTERNAL MUELLER IN PLACE BUT HAD NO URINE ALL NIGHT. BLADDER SCAN DONE WITH 976 RESULT. PATIENT WAS GOTTEN UP TO BEDSIDE COMMODE WITH SBA ONLY. VOIDED 700. DR DORSEY WAS CALLED AND AN ORDER WAS TAKEN TO BLADDER SCAN AND INSERT MUELLER FOR RESIDUAL OF 300ML. PATIENT ABLE TO DO THINGS FOR SELF IF ENCOURAGED. STATED COULD NOT GET UP FIRST PART OF SHIFT BUT DID GET UP TO BSC BY SELF. O2 AT 2L/NC. SLEPT OFF AND ON DURING NIGHT. C/O PAIN, MED GIVEN.
[2019-10-09 08:00] VITALS: BP 116/72
[2019-10-09 15:00] VITALS: BP 116/72
[2019-10-09 19:49] VITALS: BP 110/61
--- NOTE | 2019-10-09 20:45 | NUR ---
Assumed patient care at 0715. Vital signs have been stable. She complains of "level ten pain" which is generalized and has "never been relieved." Patient takes scheduled Acetaminophen 650mg po QID, takes Alprazolam five times per day; she tends to obsess about these things often. Patient has told staff that she cant feed herself. This was found to be untrue, as she has fed herself all three meals during this shift. Patient also had Oxygen on which was discontinued and denied the ability to urinate on her own. She has orders for prn bladder scan which has not been needed, as patient has had minimal assist up to bedside commode with good output. Report given to on-coming nurse.
[2019-10-10 03:00] VITALS: BP 117/69
[2019-10-10 04:33] VITALS: BP 122/71
--- NOTE | 2019-10-10 04:56 | NUR ---
Pt. slept fair during the night. Up with assist to bathroom using gait belt and walker. Bed alarm on , she calls appropriately for assistance. Very particular about meds and gets very anxious. Scheduled anxiety and sleep med given with good result. Denies any pain. Afebrile. No confusion. Voided per bathroom and had 1550 ml of clear yellow urine. Making progress towards care plan goals.
[2019-10-10 07:50] VITALS: BP 106/65
--- NOTE | 2019-10-10 15:09 | NUR ---
CM SPOKE WITH CARE TEAM THIS DAY. THEY INDICATED THAT THEY HAD SPOKEN TO PT ABOUT GOING TO [facility] WHERE DT. ROBIN HORNER FOLLOWS FOR SHORT TERM POST ACUTE CARE STAY. CM MET WITH PT AT BEDSIDE TO DISCUSS WELL. PT INDICATED SHE HAS IMPORTANT APPOINTMENTS SCHEDULED FOR HER EYES AND SHE CAN'T MISS THEM. CM INDICATED THAT IT WOULD LIKELY JUST BE A SHORT STAY BUT PT STATED SHE WASN'T SURE. CM NOTIFIED PHYSICAIN AND HE INDICATED THAT PT COULD DC HOME TOMORROW WITH HH SERVICES. CM TO FOLLOW INDICATED WITH DC PLANNING.
--- NOTE | 2019-10-10 16:10 | NUR ---
FAXED REFERRAL TO [facility] SPOKE WITH CRISTEL IN INTAKE THEY RECEIVED REFERRAL AND CAN ACCEPT. DP TO FOLLOW.
--- NOTE | 2019-10-10 16:11 | NUR ---
FAXED REFERRAL TO [facility] SPOKE WITH CRISTEL IN INTAKE SHE RECEIVED REFERRAL AND THEY WILL REVIEW. DP TO FOLLOW.
[2019-10-10 16:15] VITALS: BP 106/65
--- NOTE | 2019-10-10 17:46 | NUR ---
Assumed pt care at 7am.Pt in bed souand asleep till 830am.Assessment completed.vss.Pt assisted to br as needed for am care and urination.Pt tolerated meds and diet.Dr Mishra here,order noted.Pt refused dc to [facility] or rehab.At 1650,pt transfered to [facility] per in stable condition.Spouse notified.Report off to Kyra sahu.
--- NOTE | 2019-10-10 18:18 | NUR ---
PT TRANSFERRED FROM 4W TO 4N. NURSE RECEIVED REPORT FROM JESUS. PT IS AOX4, VSS. PT HAS MANY CONCERNS ABOUT HER POC. PT REPORTS THE DOCTOR STILL HAS NOT MADE IT CLEAR. PT IS CURRENTLY IN THE BED AND HER IS AT BEDSIDE. CALL LIGHT/PERSONAL BELONGINGS IN REACH. NURSE EDUCATED PT ON MEDICATION, WILL CONTINUE TO MONITOR.
[2019-10-10 19:38] VITALS: BP 126/56
[2019-10-11 06:02] LABS: CALCIUM 8.6 mg/dL (8.5-10.1); CREATININE 0.6 mg/dL (0.6-1.0); MAGNESIUM 1.9 mg/dL (1.8-2.4); POTASSIUM 4.4 mmol/L (3.5-5.1)
[2019-10-11 08:11] VITALS: BP 129/83
[2019-10-11 08:12] VITALS: BP 129/83
[2019-10-11] MEDS ORDERED: MIRALAX17 GM PO (12:19)
[2019-10-11] MEDS ORDERED: LACTULOSE20 GM/30 M PO (12:19)
[2019-10-11] MEDS ORDERED: XANAX1 MG PO ×2 (12:19)
[2019-10-11] MEDS ORDERED: CENTRUM SILVER1 EAC4 PO (12:20)
--- NOTE | 2019-10-11 16:07 | NUR ---
DISCHARGE NOTE: MARIA ELENA reviewed chart and spoke with nursing. Pt was transferred to [facility] from and is medically stable for discharge today. Recommendation made for pt to go post-acute for continued rehab and med mgmt. MARIA ELENA met with pt and spouse at bedside to provide update and discuss discharge plan. Pt and spouse are agreeable with SNF referral to [facility]. Pt with multiple questions about already scheduled appointments, and if transportation will be provided to these appts. Pt states she has concerns about her medications at home and what she will need at the facility. MARIA ELENA spoke with pt and spouse at length about insurance coverage while at the SNF. Both verbalized understanding. SW faxed referral to [facility] and notified Olu in admissions of new referral. Per Olu, they are able to provide transportation to pt's previously scheduled doctors appts. Awaiting input on pt's acceptance. Received call back that they are able to accept pt today. Transportation scheduled for 1630. MARIA ELENA updated pt and family at bedside. All agreeable with plan. Chart copy requested from . Nursing provided with number to call report. MARIA ELENA updated attending physician. No additional SW needs identified at this time, but is available to assist should needs arise.
--- NOTE | 2019-10-11 16:41 | NUR ---
ASSUMED CARE OF PATIENT AT 0715, PATIENT ALERT AND ORIENTED X 4, VERY ANXIOUS. VSS, AM MEDICATIONS GIVEN. PATIENT C/O PAIN GENRALIZED OVER BODY, SHE RECEIVES SCHEDULED TYLENOL AND SCHEDULED XANAX. PATIENT UP WITH SBA TO BATHROOM. CAN BE INCONTINENT AT TIMES, WEARS BRIEFS. PATIENT C/O DISCOMFORT WITH HER EYES, EYE OINTMENT APPLIED THIS AM. PATIENT HAD RIGHT AC IV IN PLACE, BUT REMOVED PRIOR TO DISCHARGE. DR DORSEY HERE TODAY, CONVINCED PATIENT TO GO TO SKILLED [facility]AC[facility], REPORT GIVEN TO SHIV/SUPERVISOR [employer]LECTRONIC [employer]ILS. DISCHARGE PACKET GIVEN TO [facility], AND ALL PERSONAL BELOGINGS SENT WITH THE PATIENT. AND SISTER AT BEDSIDE AND PRESENT ON DISCHARGE.
--- NOTE | 2019-10-20 10:23 | D ---
[facility] [place] [address] DISCHARGE SUMMARY Name: DB DANIELLE Room #: 404-P [facility] IN M.R.#: [id number] Admission: 10/07/19 Attend Phys: Noah Michele Discharge: 10/11/19 Date of : 48 Report #: [id number] THIS REPORT FOR: cc: Madi Conway MD,Mason Davis MD, MD ~ THIS REPORT FOR: //name// CC: Madi Conway FINAL DIAGNOSES: 1. Hyponatremia. 2. Hypokalemia. 3. Chronic constipation. HOSPITAL COURSE: The patient was admitted from home with general weakness. She was found with low sodium and low potassium. Potassium was supplemented and her sodium corrected just with symptomatic treatment. Her appetite was improved. Her strength improved as well. She was actually able to walk the halls with just standby assistance. She has a lot of chronic health conditions and obsessions regarding followup with these, which is a longstanding issue. Dr. Scott was consulted from Psychiatry, but the patient really would not accept any change or treatment regimen. The Neurology service saw her for a tremor episode, but there was no sign of seizure and there was no diagnosis of seizure. EEG was normal along with two CTs of the head. PHYSICAL EXAMINATION: On the day of discharge: GENERAL: She was awake and alert, but very concerned about her ongoing health issues including her eyes, ENT, need for specialist appointments and her skin treatments. LUNGS: Clear. HEART: Regular. ABDOMEN: Soft, normoactive bowel sounds. EXTREMITIES: Showed no edema. VITAL SIGNS: Stable. As mentioned, I have watched her walk the halls with just standby assistance. DISPOSITION: She will be transferred [place] a [place] [facility] [place] with diet and activity as tolerated. PT and OT. Continue usual home medications and follow up with Dr. Conway. <ELECTRONICALLY SIGNED> By: Mason Mishra MD 10/20/19 1023 1217 1225 Mason Mishra MD /nt
== END 2019-10-11 16:51 | DRG 641 ==
LOC: ER 21:21 → 4W 10-07 01:22 → EROBS 10-07 01:22 → 4W 10-07 02:39 → 4N 10-10 17:51
PROVIDERS: Emergency Medicine; Internal Medicine Geriatric Medicine; Physician Assistant; ADMIT Internal Medicine
DX: E87.1 Hypo-osmolality and hyponatremia (principal); R41.0 Disorientation, unspecified; E87.6 Hypokalemia; M19.90 Unspecified osteoarthritis, unspecified site; F32.9 Major depressive disorder, single episode, unspecified; T50.2X5A Adverse effect of carbonic-anhydrase inhibitors, benzothiadiazides and other diuretics, initial encounter; F39 Unspecified mood [affective] disorder; K59.09 Other constipation; F41.9 Anxiety disorder, unspecified; Z79.899 Other long term (current) drug therapy; Z88.1 Allergy status to other antibiotic agents; Z88.5 Allergy status to narcotic agent; Z88.8 Allergy status to other drugs, medicaments and biological substances; Z90.710 Acquired absence of both cervix and uterus; Y92.89 Other specified places as the place of occurrence of the external cause
CPT/HCPCS: 10040; 10091